=== PATIENT | male | born 1965 | race Caucasian/White ===

== ENCOUNTER 2020-11-14 11:12 | Day surgery (SDCO) | payer OTHER ==
[~2020-11-14 11:12] MED LIST: AMARYL2 MG PO; BACTROBAN NASAL1 GM TOP; HCTZ25 MG PO; LISINOPRIL 5 MG5 MG PO; METFORMIN HCL500 M1 PO
[2020-11-14 13:36] LABS: BASOPHIL 0.2 % (0-2); EOSINOPHIL 0 % (0-5); HCT 42.6 % (42.0-52.0); HGB 15.5 g/dl (13.2-18.0); LYMPHOCYTE 10.8 % (15-48); MCH 29.9 pg (25.0-31.0); MCHC 36.4 g/dL (32.0-36.0); MCV 82.1 fL (78.0-100.0); MONOCYTE 3.3 % (0-12); MPV 10.3 fL (6.0-9.5); NEUTROPHIL 85.4 % (41-80); NRBC 0; PLT 195 K/uL (150-400); RBC 5.19 M/uL (4.70-6.00); RDW 12.3 % (11.5-14.0); WBC 9.5 K/uL (4.0-10.5)
[2020-11-14 13:53] LABS: LACTIC ACID 3.2 mmol/L (0.4-1.9)
[2020-11-14 13:59] LABS: ALBUMIN 4.1 g/dL (3.4-5.0); BILIRUBIN - TOTAL 1.1 mg/dL (0.2-1.0); BUN/CREAT RATIO (CALC) 24.3 RATIO; CREATININE 1.11 mg/dL (0.67-1.17); GLOBULIN (CALCULATION) 3.6 g/dL; POTASSIUM 4.1 mmol/L (3.5-5.1); TOTAL PROTEIN 7.7 g/dL (6.4-8.2)
[2020-11-14] MEDS ORDERED: AMARYL2 MG PO (15:59)
[2020-11-14] MEDS ORDERED: ASPIRIN EC81 M1 PO (15:59)
[2020-11-14] MEDS ORDERED: ZYRTEC10 M3 PO (16:00)
[2020-11-14] MEDS ORDERED: LEXAPRO 10MG TA10 MG PO (16:00)
[2020-11-14] MEDS ORDERED: GLUCOPHAGE500 MG PO (16:01)
[2020-11-14] MEDS ORDERED: HCTZ25 MG PO (16:01)
[2020-11-14] MEDS ORDERED: ZESTRIL5 MG PO (16:01)
[2020-11-14 16:36] LABS: BILIRUBIN NEGATIVE (NEGATIVE); BLOOD NEGATIVE Ery/uL (NEGATIVE); CLARITY CLEAR (CLEAR); COLOR YELLOW (YELLOW); GLUCOSE (U) 3+ mg/dL (NORMAL); LEUKOCYTES NEGATIVE Leu/uL (NEGATIVE); NITRITE NEGATIVE (NEGATIVE); PROTEIN NEGATIVE (NEGATIVE); SPECIFIC GRAVITY 1.025 (1.001-1.030); UROBILINOGEN 0.2 mg/dL (0.2-1.0); pH 5.5 (5.0-9.0)
[2020-11-14 22:34] LABS: BUN/CREAT RATIO (CALC) 22.5 RATIO; CREATININE 1.02 mg/dL (0.67-1.17)
[2020-11-15 05:36] LABS: BASOPHIL 0.2 % (0-2); EOSINOPHIL 0.3 % (0-5); HCT 35.9 % (42.0-52.0); HGB 12.8 g/dl (13.2-18.0); LYMPHOCYTE 18.6 % (15-48); MCH 29.6 pg (25.0-31.0); MCHC 35.7 g/dL (32.0-36.0); MCV 82.9 fL (78.0-100.0); MONOCYTE 6.6 % (0-12); MPV 9.9 fL (6.0-9.5); NEUTROPHIL 73.9 % (41-80); NRBC 0; PLT 176 K/uL (150-400); RBC 4.33 M/uL (4.70-6.00); RDW 12.5 % (11.5-14.0); WBC 9.1 K/uL (4.0-10.5)
[2020-11-15 06:01] LABS: BUN/CREAT RATIO (CALC) 21.1 RATIO; CREATININE 0.95 mg/dL (0.67-1.17); MAGNESIUM 1.7 mg/dL (1.8-2.4); POTASSIUM 3.6 mmol/L (3.5-5.1)
--- NOTE | 2020-11-15 13:46 | NUR ---
[facility] PT AND SPOUSE. PT. 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 HE DOES NOT REPORT ANY NEEDS AT THIS TIME. PLEASE ADVISE OF ANY D/C NEEDS.
--- NOTE | 2020-11-15 17:31 | NUR ---
PATIENT HAS BEEN RESTING MOST OF THE DAY, DID WALK THE HALLS ONCE WITH ONCE, STATES THAT HIS BELLY IS FEELING BETTER.
[2020-11-17 06:18] LABS: HCT 39.5 % (42.0-52.0); HGB 14.3 g/dl (13.2-18.0); MCH 30.1 pg (25.0-31.0); MCHC 36.2 g/dL (32.0-36.0); MCV 83.2 fL (78.0-100.0); MPV 10.1 fL (6.0-9.5); RBC 4.75 M/uL (4.70-6.00); RDW 12.4 % (11.5-14.0); WBC 5.6 K/uL (4.0-10.5)
[2020-11-17 06:38] LABS: BUN/CREAT RATIO (CALC) 13.5 RATIO; CREATININE 0.96 mg/dL (0.67-1.17); POTASSIUM 3.6 mmol/L (3.5-5.1)
[2020-11-17] MEDS ORDERED: BENTYL10 MG PO ×2 (16:50→17:19)
[2020-11-17] MEDS ORDERED: CARAFATE1 GM PO ×2 (16:50→17:19)
[2020-11-17] MEDS ORDERED: PROTONIX 40MG T40 MG PO ×2 (16:50→17:19)
[2020-11-17] MEDS ORDERED: ZOFRAN4 M1 PO ×2 (16:50→17:19)
== END 2020-11-17 18:15 | disposition home or self-care (01) ==
LOC: FER 11:12 → FMS 14:32
PROVIDERS: Emergency Medicine; Hospitalist; Nurse Practitioner; ADMIT Allergy & Immunology Allergy
DX: A08.4 Viral intestinal infection, unspecified (principal); K20.90 Esophagitis, unspecified without bleeding; N17.9 Acute kidney failure, unspecified; E11.10 Type 2 diabetes mellitus with ketoacidosis without coma; I10 Essential (primary) hypertension; E87.3 Alkalosis; Z79.84 Long term (current) use of oral hypoglycemic drugs; Z79.899 Other long term (current) drug therapy; Z88.0 Allergy status to penicillin; Z20.822 Contact with and (suspected) exposure to COVID-19
CPT/HCPCS: 36415; 36600; 71045; 80048; 80053; 81003; 82803; 82962; 83036; 83605; 83735; 85025; 93005; C9113; G0378; J0780; J2270; J2405; J2550; J7030; J7120; U0002

== ENCOUNTER → 2020-12-08 | Day surgery (SDC) | payer OTHER ==
[~2020-12-08] MED LIST changes: +ASPIRIN EC81 M1 PO; +BENTYL10 MG PO; +CARAFATE1 GM PO; +GLUCOPHAGE500 MG PO; +LEXAPRO 10MG TA10 MG PO; +PROTONIX 40MG T40 MG PO; +ZESTRIL5 MG PO; +ZOFRAN4 M1 PO; +ZYRTEC10 M3 PO
== END | disposition home or self-care (01) ==
LOC: FAS 09:18
DX: K29.50 Unspecified chronic gastritis without bleeding (principal); K44.9 Diaphragmatic hernia without obstruction or gangrene; K56.41 Fecal impaction; E11.9 Type 2 diabetes mellitus without complications; Z88.0 Allergy status to penicillin; Z83.3 Family history of diabetes mellitus; Z79.84 Long term (current) use of oral hypoglycemic drugs
CPT/HCPCS: 36415; 82962; 84132; J2704; J7120

== ENCOUNTER → 2021-01-12 | Day surgery (SDC) | payer OTHER ==
[~2021-01-12] VITALS: Ht 167.6 cm; Wt 87.1 kg
== END | disposition home or self-care (01) ==
LOC: FAS 07:08
DX: D12.0 Benign neoplasm of cecum (principal); Z80.0 Family history of malignant neoplasm of digestive organs; Z86.010 Personal history of colon polyps; E11.65 Type 2 diabetes mellitus with hyperglycemia; Z88.0 Allergy status to penicillin; E11.42 Type 2 diabetes mellitus with diabetic polyneuropathy; Z79.84 Long term (current) use of oral hypoglycemic drugs; I10 Essential (primary) hypertension; K21.9 Gastro-esophageal reflux disease without esophagitis; M19.90 Unspecified osteoarthritis, unspecified site; Z90.89 Acquired absence of other organs
CPT/HCPCS: 82962; J2250; J2704; J7120